=== PATIENT | male | born 1960 | race Caucasian/White ===

== ENCOUNTER → 2017-05-14 | Outpatient (CLI) | payer OTHER ==
--- NOTE | 2017-05-14 11:22 | RAD ---
Complete abdominal ultrasound 05/14/2017 Indication: Abnormal liver enzymes. Comparison study: None. Discussion: Ultrasound evaluation of the abdomen was performed. Static images were sent to PACS. Visualized portions of the pancreas are unremarkable. Visualized portions of the aorta and IVC are unremarkable. The gallbladder is normal in appearance without evidence of wall thickening, stones, or sludge. The common bile duct is nondilated at 4 mm. The liver is diffusely hyperechoic suggesting hepatic steatosis. Liver is mildly enlarged measuring 19 cm longitudinally. No focal hepatic lesions are seen. No intrahepatic biliary dilatation is seen. The right kidney is normal appearance measuring 11.6 cm in length. Left kidney is normal in appearance measuring 11.9 cm in length. The spleen is normal in appearance measuring 11 cm in length. Impression: 1. Hepatic steatosis and mild hepatomegaly 2. Otherwise unremarkable abdominal ultrasound
== END | disposition home or self-care (01) ==
LOC: US 07:47
PROVIDERS: ATTEND Family Medicine
DX: K76.0 Fatty (change of) liver, not elsewhere classified (principal); R16.0 Hepatomegaly, not elsewhere classified
CPT/HCPCS: 76700